=== PATIENT | male | born 1955 | race Two or more races ===

== ENCOUNTER 2017-01-18 10:34 | Outpatient (CLI) | payer MEDICARE, BC | END 2017-01-18 23:59 | disposition home or self-care (01) | LOC: WOU 10:34 | PROVIDERS: ATTEND Podiatrist Foot & Ankle Surgery | DX: T87.81 Dehiscence of amputation stump (principal); E11.621 Type 2 diabetes mellitus with foot ulcer; L97.411 Non-pressure chronic ulcer of right heel and midfoot limited to breakdown of skin; L97.511 Non-pressure chronic ulcer of other part of right foot limited to breakdown of skin; L97.524 Non-pressure chronic ulcer of other part of left foot with necrosis of bone; E11.42 Type 2 diabetes mellitus with diabetic polyneuropathy; Z94.0 Kidney transplant status; Z79.4 Long term (current) use of insulin; Z95.5 Presence of coronary angioplasty implant and graft; Z87.891 Personal history of nicotine dependence; I25.10 Atherosclerotic heart disease of native coronary artery without angina pectoris; I11.0 Hypertensive heart disease with heart failure; I50.9 Heart failure, unspecified; Z88.6 Allergy status to analgesic agent; Z88.0 Allergy status to penicillin; Z89.422 Acquired absence of other left toe(s) | CPT/HCPCS: 11042; 11044; 11045; A6402; A6407 ==

== ENCOUNTER 2017-02-01 05:56 | Day surgery (SDC) | payer MEDICARE, BC ==
[2017-02-01] MEDS ORDERED: CEFAZOLIN SODIUM/DEXTROSE,ISO 100 ML IV ONE (06:03)
[2017-02-01] MEDS ORDERED: FENTANYL PF 100MCG/2ML AMPUL ONE (07:27)
[2017-02-01] MEDS ORDERED: MIDAZOLAM HCL 2 MG/2ML VIAL ONE (07:27)
[2017-02-01] MEDS ORDERED: CLINDAMYCIN 900 MG/6 ML VIAL ONE (07:43)
[2017-02-01] MEDS ORDERED: POVIDONE-IODINE OINT 28.4 GM TUBE ONE (09:19)
[2017-02-01] MEDS ORDERED: TRAMADOL HCL 50 MG TABLET PO PRN (11:00)
== END 2017-02-01 10:45 ==
LOC: DS 05:56
PROVIDERS: ATTEND Podiatrist Foot & Ankle Surgery
DX: T87.81 Dehiscence of amputation stump (principal); Y83.9 Surgical procedure, unspecified as the cause of abnormal reaction of the patient, or of later complication, without mention of misadventure at the time of the procedure; E11.621 Type 2 diabetes mellitus with foot ulcer; L97.422 Non-pressure chronic ulcer of left heel and midfoot with fat layer exposed; L97.511 Non-pressure chronic ulcer of other part of right foot limited to breakdown of skin; Z94.0 Kidney transplant status; I25.10 Atherosclerotic heart disease of native coronary artery without angina pectoris; E11.22 Type 2 diabetes mellitus with diabetic chronic kidney disease; I12.0 Hypertensive chronic kidney disease with stage 5 chronic kidney disease or end stage renal disease; N18.6 End stage renal disease; Z99.2 Dependence on renal dialysis; D63.1 Anemia in chronic kidney disease; E66.9 Obesity, unspecified; G47.33 Obstructive sleep apnea (adult) (pediatric); Z85.858 Personal history of malignant neoplasm of other endocrine glands; Z85.028 Personal history of other malignant neoplasm of stomach; Z96.659 Presence of unspecified artificial knee joint; Z96.89 Presence of other specified functional implants; Z83.3 Family history of diabetes mellitus; Z84.89 Family history of other specified conditions
CPT/HCPCS: 82962-TC; 87070-TC; 87075-TC; 88305-TC; 88311-TC; A6209; A6402; J0690; J2250; J2405; J2704; J3010; J3490; Z7610

== ENCOUNTER 2017-11-01 11:33 | Outpatient (CLI) | payer MEDICARE, BC | END 2017-11-01 23:59 | disposition home health service (06) | LOC: WOU 11:33 | PROVIDERS: ATTEND Podiatrist Foot & Ankle Surgery | DX: E11.621 Type 2 diabetes mellitus with foot ulcer (principal); L97.511 Non-pressure chronic ulcer of other part of right foot limited to breakdown of skin; E11.41 Type 2 diabetes mellitus with diabetic mononeuropathy; Z89.421 Acquired absence of other right toe(s); Z89.422 Acquired absence of other left toe(s); Z94.0 Kidney transplant status; Z95.5 Presence of coronary angioplasty implant and graft; Z88.6 Allergy status to analgesic agent; Z88.0 Allergy status to penicillin; Z87.891 Personal history of nicotine dependence; Z79.4 Long term (current) use of insulin | CPT/HCPCS: 11042; 82962; A6402 ×2 ==

== ENCOUNTER 2017-11-15 11:42 | Outpatient (CLI) | payer MEDICARE, BC | END 2017-11-15 23:59 | disposition home health service (06) | LOC: WOU 11:42 | PROVIDERS: ATTEND Podiatrist Foot & Ankle Surgery | DX: E11.621 Type 2 diabetes mellitus with foot ulcer (principal); L97.511 Non-pressure chronic ulcer of other part of right foot limited to breakdown of skin; E11.41 Type 2 diabetes mellitus with diabetic mononeuropathy; Z89.421 Acquired absence of other right toe(s); Z89.422 Acquired absence of other left toe(s); I11.0 Hypertensive heart disease with heart failure; I50.9 Heart failure, unspecified; Z95.5 Presence of coronary angioplasty implant and graft; Z79.4 Long term (current) use of insulin; Z88.6 Allergy status to analgesic agent; Z88.0 Allergy status to penicillin; Z94.0 Kidney transplant status; Z87.891 Personal history of nicotine dependence | CPT/HCPCS: 11042; A6402 ==

== ENCOUNTER 2018-01-17 11:50 | Outpatient (CLI) | payer MEDICARE, BC | END 2018-01-17 23:59 | disposition home health service (06) | LOC: WOU 11:50 | PROVIDERS: ATTEND Podiatrist Foot & Ankle Surgery | DX: E11.621 Type 2 diabetes mellitus with foot ulcer (principal); L97.511 Non-pressure chronic ulcer of other part of right foot limited to breakdown of skin; E11.40 Type 2 diabetes mellitus with diabetic neuropathy, unspecified; Z95.5 Presence of coronary angioplasty implant and graft; Z94.0 Kidney transplant status; Z87.891 Personal history of nicotine dependence; Z88.6 Allergy status to analgesic agent; Z88.0 Allergy status to penicillin; I25.10 Atherosclerotic heart disease of native coronary artery without angina pectoris; I11.0 Hypertensive heart disease with heart failure; I50.9 Heart failure, unspecified; Z79.899 Other long term (current) drug therapy; Z79.4 Long term (current) use of insulin | CPT/HCPCS: 11042; A6402; Z7610 ==

== ENCOUNTER 2018-02-18 12:40 | Outpatient (CLI) | payer MEDICARE, BC | END 2018-02-18 23:59 | disposition home health service (06) | LOC: WOU 12:40 | PROVIDERS: ATTEND Podiatrist Foot & Ankle Surgery | DX: E11.621 Type 2 diabetes mellitus with foot ulcer (principal); L97.511 Non-pressure chronic ulcer of other part of right foot limited to breakdown of skin; E11.40 Type 2 diabetes mellitus with diabetic neuropathy, unspecified; R60.0 Localized edema; Z94.0 Kidney transplant status; Z79.4 Long term (current) use of insulin; Z95.5 Presence of coronary angioplasty implant and graft; Z88.6 Allergy status to analgesic agent; Z88.0 Allergy status to penicillin | CPT/HCPCS: 11042; A6402; Z7610 ==

== ENCOUNTER 2018-04-01 13:20 | Outpatient (CLI) | payer MEDICARE, BC | END 2018-04-01 23:59 | disposition home health service (06) | LOC: WOU 13:20 | PROVIDERS: ATTEND Podiatrist Foot & Ankle Surgery | DX: E11.621 Type 2 diabetes mellitus with foot ulcer (principal); L60.0 Ingrowing nail; L97.511 Non-pressure chronic ulcer of other part of right foot limited to breakdown of skin; Z79.4 Long term (current) use of insulin; E11.40 Type 2 diabetes mellitus with diabetic neuropathy, unspecified; Z94.0 Kidney transplant status; Z95.5 Presence of coronary angioplasty implant and graft; I25.10 Atherosclerotic heart disease of native coronary artery without angina pectoris; Z87.891 Personal history of nicotine dependence; Z89.422 Acquired absence of other left toe(s); I11.0 Hypertensive heart disease with heart failure; I50.9 Heart failure, unspecified; Z79.899 Other long term (current) drug therapy | CPT/HCPCS: 11042; 11730; A6402; Z7610 ==

== ENCOUNTER 2018-06-27 11:00 | Outpatient (CLI) | payer MEDICARE, BC | END 2018-06-27 23:59 | disposition home health service (06) | LOC: WOU 11:00 | PROVIDERS: ATTEND Podiatrist Foot & Ankle Surgery | DX: E11.621 Type 2 diabetes mellitus with foot ulcer (principal); L97.512 Non-pressure chronic ulcer of other part of right foot with fat layer exposed; E11.40 Type 2 diabetes mellitus with diabetic neuropathy, unspecified; Z79.4 Long term (current) use of insulin; Z79.899 Other long term (current) drug therapy; Z94.0 Kidney transplant status; G47.30 Sleep apnea, unspecified | CPT/HCPCS: 15275; A6402 ==

== ENCOUNTER 2018-07-11 11:35 | Outpatient (CLI) | payer MEDICARE, BC | END 2018-07-11 23:59 | disposition home health service (06) | LOC: WOU 11:35 | PROVIDERS: ATTEND Podiatrist Foot & Ankle Surgery | DX: E11.621 Type 2 diabetes mellitus with foot ulcer (principal); L97.512 Non-pressure chronic ulcer of other part of right foot with fat layer exposed; E11.40 Type 2 diabetes mellitus with diabetic neuropathy, unspecified; Z94.0 Kidney transplant status; Z87.891 Personal history of nicotine dependence; Z79.4 Long term (current) use of insulin; Z79.899 Other long term (current) drug therapy; Z89.422 Acquired absence of other left toe(s); I11.0 Hypertensive heart disease with heart failure; I50.9 Heart failure, unspecified; I25.10 Atherosclerotic heart disease of native coronary artery without angina pectoris | CPT/HCPCS: 15275; A6402; Q4195 ×2 ==

== ENCOUNTER 2018-09-19 09:55 | Outpatient (CLI) | payer MEDICARE, BC | END 2018-09-19 23:59 | disposition home health service (06) | LOC: WOU 09:55 | PROVIDERS: ATTEND Podiatrist Foot & Ankle Surgery | DX: E11.621 Type 2 diabetes mellitus with foot ulcer (principal); L97.512 Non-pressure chronic ulcer of other part of right foot with fat layer exposed; E11.40 Type 2 diabetes mellitus with diabetic neuropathy, unspecified; Z87.891 Personal history of nicotine dependence; Z79.4 Long term (current) use of insulin; Z79.899 Other long term (current) drug therapy; Z94.0 Kidney transplant status; I25.10 Atherosclerotic heart disease of native coronary artery without angina pectoris; Z95.5 Presence of coronary angioplasty implant and graft; G47.30 Sleep apnea, unspecified | CPT/HCPCS: 15275; A6402; Q4196 ==

== ENCOUNTER 2018-09-26 10:15 | Outpatient (CLI) | payer MEDICARE, BC | END 2018-09-26 23:59 | disposition home health service (06) | LOC: WOU 10:15 | PROVIDERS: ATTEND Podiatrist Foot & Ankle Surgery | DX: E11.621 Type 2 diabetes mellitus with foot ulcer (principal); L97.512 Non-pressure chronic ulcer of other part of right foot with fat layer exposed; E11.40 Type 2 diabetes mellitus with diabetic neuropathy, unspecified; Z87.891 Personal history of nicotine dependence; Z94.0 Kidney transplant status; Z79.899 Other long term (current) drug therapy; I25.10 Atherosclerotic heart disease of native coronary artery without angina pectoris; Z95.5 Presence of coronary angioplasty implant and graft; Z88.0 Allergy status to penicillin | CPT/HCPCS: 15275; A6402; Q4195 ==

== ENCOUNTER 2018-10-10 11:00 | Outpatient (CLI) | payer MEDICARE, BC | END 2018-10-10 23:59 | disposition home health service (06) | LOC: WOU 11:00 | PROVIDERS: ATTEND Podiatrist Foot & Ankle Surgery | DX: E11.621 Type 2 diabetes mellitus with foot ulcer (principal); L97.512 Non-pressure chronic ulcer of other part of right foot with fat layer exposed; E11.40 Type 2 diabetes mellitus with diabetic neuropathy, unspecified; Z94.0 Kidney transplant status; Z79.899 Other long term (current) drug therapy; I25.10 Atherosclerotic heart disease of native coronary artery without angina pectoris; Z95.5 Presence of coronary angioplasty implant and graft; Z87.891 Personal history of nicotine dependence | CPT/HCPCS: 15275; A6402; Q4196 ==

== ENCOUNTER 2018-10-17 10:40 | Outpatient (CLI) | payer MEDICARE, BC | END 2018-10-17 23:59 | disposition home health service (06) | LOC: WOU 10:40 | PROVIDERS: ATTEND Podiatrist Foot & Ankle Surgery | DX: E11.621 Type 2 diabetes mellitus with foot ulcer (principal); L97.512 Non-pressure chronic ulcer of other part of right foot with fat layer exposed; E11.40 Type 2 diabetes mellitus with diabetic neuropathy, unspecified; Z94.0 Kidney transplant status; G47.30 Sleep apnea, unspecified; Z87.891 Personal history of nicotine dependence; Z95.5 Presence of coronary angioplasty implant and graft; Z89.421 Acquired absence of other right toe(s) | CPT/HCPCS: 11042; 82962; A6402 ==

== ENCOUNTER 2018-10-31 09:53 | Outpatient (CLI) | payer MEDICARE, BC | END 2018-10-31 23:59 | disposition home health service (06) | LOC: WOU 09:53 | PROVIDERS: ATTEND Podiatrist Foot & Ankle Surgery | DX: E11.621 Type 2 diabetes mellitus with foot ulcer (principal); L97.512 Non-pressure chronic ulcer of other part of right foot with fat layer exposed; E11.40 Type 2 diabetes mellitus with diabetic neuropathy, unspecified; Z94.0 Kidney transplant status; Z87.891 Personal history of nicotine dependence; I11.0 Hypertensive heart disease with heart failure; I50.9 Heart failure, unspecified; G47.30 Sleep apnea, unspecified; I25.10 Atherosclerotic heart disease of native coronary artery without angina pectoris; Z95.5 Presence of coronary angioplasty implant and graft; Z79.4 Long term (current) use of insulin; Z79.82 Long term (current) use of aspirin | CPT/HCPCS: 11042; A6402 ==